=== PATIENT | female | born 1965 | race Hispanic/Latino ===

== ENCOUNTER → 2023-10-11 08:43 | Outpatient (REF) | payer OTHER, SELFPAY ==
[2023-10-11 09:29] LABS: % Basophils 0.3 % (0-2); % Immature Granulocytes 0.4 % (0-0.5); % Lymphocytes 26.1 % (20.5-51.1); % Monocytes 5.8 % (1.7-9.3); % Neutrophils 66.4 % (42.2-75.2); Absolute Eosinophils 0.1 10^3/uL (0-0.7); Absolute Lymphocytes 2.4 10^3/uL (1.2-3.4); Absolute Monocytes 0.5 10^3/uL (0.1-0.6); Absolute Neutrophils 6.2 10^3/uL (1.4-6.5); Hematocrit 34.8 % (37.0-47.0); Hemoglobin 11.4 g/dL (12.0-16.0); Mean Corp Hgb Conc. 32.8 g/dL (33.0-37.0); Mean Corpuscular Hgb 26.7 pg (27.0-31.0); Mean Corpuscular Volume 81.5 fL (81.0-99.0); Nucleated Red Blood Cells % 0 %; Platelet Count 459 10^3/uL (130-400); Red Blood Cell Count 4.27 10^6/uL (4.20-5.40); Red Cell Dist. Width 13.2 % (11.5-14.5); Reticulocyte Count 1.8 % (0.4-2.8); White Blood Cell Count 9.3 10^3/uL (4.8-10.8)
[2023-10-11 09:45] LABS: Glycohemoglobin (HgbA1c) 14.9 % (4.0-5.6)
[2023-10-11 10:29] LABS: Microalbumin, Random Urine 10.1 mg/dl (0.6-1.7)
[2023-10-11 10:34] LABS: ALT (SGPT) 25 U/L (0-35); AST (SGOT) 20 U/L (14-36); Albumin 3.4 g/dl (3.5-5.0); Alkaline Phosphatase 112 U/L (38-126); Blood Urea Nitrogen 15 mg/dl (7-17); Calcium 9.2 mg/dl (8.4-10.2); Carbon Dioxide 25 mmol/L (22-30); Chloride 107 mmol/L (98-107); Glucose 102 mg/dl (70-99); HDL Cholesterol 30 mg/dl; LDL Cholesterol, Calculated 57 mg/dl; Potassium 4.4 mmol/L (3.5-5.1); Sodium 140 mmol/L (135-145); Total Bilirubin 0.3 mg/dl (0.2-1.3); Total Cholesterol 115 mg/dl (50-199); Total Protein 6.4 g/dl (6.3-8.2); Triglyceride 144 mg/dl (10-149); Very Low Density Lipoprotein 28 mg/dl (0-30); eGFR > 60.00
== END ==
LOC: CLINIC 08:43
PROVIDERS: ATTENDING PHYSICIAN Internal Medicine
DX: E11.9 Type 2 diabetes mellitus without complications (principal)
CPT/HCPCS: 36415; 80053; 80061; 82043; 83036; 85025; 85045

== ENCOUNTER → 2023-10-20 09:59 | Outpatient (REF) | payer OTHER, SELFPAY | LOC: CLINIC 09:59 | PROVIDERS: ATTENDING PHYSICIAN Internal Medicine | DX: Z12.31 Encounter for screening mammogram for malignant neoplasm of breast (principal) | CPT/HCPCS: 77063; 77067 ==

== ENCOUNTER → 2024-01-10 08:18 | Outpatient (REF) | payer OTHER, SELFPAY ==
[2024-01-10 10:33] LABS: Glycohemoglobin (HgbA1c) 11.9 % (4.0-5.6)
== END ==
LOC: CLINIC 08:18
PROVIDERS: ATTENDING PHYSICIAN Internal Medicine
DX: E11.9 Type 2 diabetes mellitus without complications (principal)
CPT/HCPCS: 36415; 83036

== ENCOUNTER → 2024-04-25 08:39 | Outpatient (REF) | payer OTHER, SELFPAY ==
[2024-04-25 11:59] LABS: Glycohemoglobin (HgbA1c) 13.9 % (4.0-5.6)
== END ==
LOC: HWLAB 08:39
PROVIDERS: ATTENDING PHYSICIAN Internal Medicine
DX: E11.9 Type 2 diabetes mellitus without complications (principal)
CPT/HCPCS: 36415; 83036

== ENCOUNTER → 2024-08-17 13:40 | Outpatient (REF) | payer OTHER, SELFPAY ==
[2024-08-18 10:21] LABS: Glycohemoglobin (HgbA1c) 14.7 % (4.0-5.6)
== END ==
LOC: REG 13:40
PROVIDERS: ATTENDING PHYSICIAN Internal Medicine
DX: E11.9 Type 2 diabetes mellitus without complications (principal)
CPT/HCPCS: 36415; 83036

== ENCOUNTER → 2025-01-22 08:42 | Outpatient (REF) | payer OTHER, SELFPAY ==
[2025-01-22 13:11] LABS: HDL Cholesterol 55 mg/dl; LDL Cholesterol, Calculated 142 mg/dl; Very Low Density Lipoprotein 37 mg/dl (0-30)
[2025-01-22 15:04] LABS: Glycohemoglobin (HgbA1c) 10.5 % (4.0-5.6)
== END ==
LOC: CLINIC 08:42
PROVIDERS: ATTENDING PHYSICIAN Internal Medicine
DX: E11.9 Type 2 diabetes mellitus without complications (principal)
CPT/HCPCS: 36415; 80061; 83036